=== PATIENT | female | born 1990 | race Caucasian/White ===

== ENCOUNTER 2019-09-20 08:04 | Inpatient (IN) ==
[2019-09-20] MEDS ORDERED: OXYTOCIN 30 UNITS/500 ML BAG IV PRN ×2 (08:58→17:32)
[2019-09-20] MEDS ORDERED: miSOPROStoL 200 MCG TAB PR ONE (09:06)
--- NOTE | 2019-09-20 09:10 | History & Physical Report ---
Date of Service September 20, 2019 Assessment & Plan (1) 40 weeks gestation of : Plan cytotec for cervical ripening. Then pitocin and arom when indicated. epidural on demand. fetus category one. Anticipate . Admission and Anticipated Discharge Date Admission Date: September 20, 2019 History of Present Illness Chief Complaint: induction Primary Care Provider: Kathya Cevallos Patient is a 29yowf with iup at 40 5/7 weeks who presents for induction for postdates. She notes some irregular contractions. No lof/vb. +fm. was complicated by borderline bps in the last week. No s/s pet. WAs to be induced on but was full. Had hernández bulb placed on Mon pm. Fell out early am but did not do much for cervical ripening. labs--A+/ab-/rirprnr/hepb-/hiv-/gc/ct-/gbs neg/failed 28 week gtt with nl 2 hr gtt/declined genetics/cf/sma Allergies Allergy/AdvReac Type Severity Reaction Status Date / Time rizatriptan Allergy Severe Swelling Verified 09/19/19 14:32 of Lip/Tongue/Throat Sulfa (Sulfonamide Allergy Severe HIVES Verified 09/19/19 14:32 Antibiotics) Home Medications Home Medications Medication Instructions Recorded Confirmed Type cholecalciferol (vitamin D3) 125 5,000 units PO DAILY 02/05/19 09/19/19 History mcg (5,000 unit) capsule prenat.vits,purnima,cem-rflm-phons 1 tab PO DAILY 02/05/19 09/19/19 History famotidine [Pepcid] 20 mg PO DAILY 09/10/19 09/19/19 History selenium 100 mcg PO DAILY 09/10/19 09/19/19 History zinc 50 mg PO DAILY 09/10/19 09/19/19 History lactobacillus comb no.10 1 cell PO DAILY 09/11/19 09/19/19 History [Probiotic] cetirizine [Zyrtec] 1 mg PO DAILY PRN 09/16/19 09/19/19 History Patient History Medical History Anxiety Back pain Cervical high risk HPV (human papillomavirus) test positive Hx of migraines Irritable bowel Irritable bowel syndrome (Inactive) Kidney stone Migraine (Resolved) Pinched nerve (Resolved) Rheumatoid arthritis involving both hands Rheumatoid arthritis involving both hips Surgical History [place] teeth removed Family History Father Diabetes Hypertension Heart disease Family/Other Depression Mother Kidney disease Endometriosis Ovarian cyst Fibroids Sister Thyroid cancer Ovarian cyst Fibroids Premature labor in third trimester Grandmother (Maternal) Osteoporosis Social History (Updated 02/05/19 @ 09:57 by Jo Ann Valencia) Preferred Language: Polish Communication Ability: Effective Textile Finisher Required: No Beliefs That Will Affect Care: None marital status: marital status details: Dank Waldrop (34) [phone] Current Living Situation: Spouse Current Living Situation Comment: Lives with spouse, 5 cats, changes litter current occupational status: employed current occupation: Case Management Director Feels Safe at Home: Yes Smoking Status: Never smoker Second Hand Exposure: No ; Hx Alcohol Use: No Hx Substance Use: No OB History g1--current [employer] History hx of +hpv in 2019 no other stds Review of Systems as per Subjective / HPI Physical Exam Constitutional: WD/WN, vitals as above Gastrointestinal (Abdomen): soft, gravid, nt efw 8-9 Psychiatric: A+Ox3, euthymic affect Genitourinary: cx--1+/50/-2 toco--rare contraction efm--130s wtih mod variability, accels to 160s, no decels cytotec #1 placed Results & Data ([facility]) Vital Signs (Past 12 Hours) Vital Signs Temp Pulse Resp BP 09/20/19 08:14 36.8 C 77 16 133/81 Code Status & VTE Plan VTE Prophylaxis Plan VTE Prophylaxis will be ordered: No Coding Level of Care Code None Diagnoses 40 weeks gestation of Z3A.40
[2019-09-20 09:26] LABS: Hematocrit (blood only) 34.5 % (37-47); Hemoglobin 11.4 g/dL (12.0-16.0); Mean Corpuscular Hemoglobin 28.7 pg (25-34); Mean Corpuscular Volume 86.9 fL (80-100); Mean Platelet Volume 12.4 fL (7.4-10.4); Platelet Count 153 K/uL (130-400); RDW Coefficient of Variation 13.2 % (11.5-14.5); RDW Standard Deviation 42.3 fL (36.4-46.3); Red Blood Count 3.97 M/uL (4.2-5.4); White Blood Count 10.25 K/uL (4.8-10.8)
[2019-09-20] MEDS ORDERED: miSOPROStoL 25 MCG TAB ONE ×2 (09:27→13:21)
[2019-09-20] MEDS ORDERED: miSOPROStoL 25 MCG TAB PV ONE (09:32)
--- NOTE | 2019-09-20 13:28 | Labor Progress Brief Note ---
Date of Service September 20, 2019 Subjective took a nap Assessment & Plan (1) 40 weeks gestation of : cytotec number 2 placed. Fetus category one. Admission and Anticipated Discharge Date Admission Date: September 20, 2019 Physical Exam Constitutional: WD/WN, vitals as above Psychiatric: A+Ox3, euthymic affect Genitourinary: cx--/50/-2 easier to reach and more ant toco--scout efm--150s wtih mod variability, accels to t170s, no decels Results & Data ([facility]) Vital Signs (Past 12 Hours) Vital Signs Temp Pulse Resp BP 09/20/19 11:37 69 127/73 09/20/19 10:07 36.8 C 20 09/20/19 08:14 36.8 C 77 16 133/81 Coding Level of Care Code None Diagnoses 40 weeks gestation of Z3A.40
--- NOTE | 2019-09-20 17:57 | Labor Progress Brief Note ---
Date of Service September 20, 2019 Subjective Noting some contractions, ranking 4-5. Assessment & Plan (1) 40 weeks gestation of : fetus category one. (2) Unfavorable cervix in term : STill quite unfavorable and jamie too frequently for cytotec. therefore, balloon trial again. Admission and Anticipated Discharge Date Admission Date: September 20, 2019 Physical Exam Constitutional: WD/WN, vitals as above Psychiatric: A+Ox3, euthymic affect Genitourinary: cx--unchanged, /-2, firm toco--q2-3min efm--140s wtih mod variability, accels to 160s, no decels hernández bulb placed under direct visualization, filled with 30cc. Results & Data ([facility]) Vital Signs (Past 12 Hours) Vital Signs Temp Pulse Resp BP 09/20/19 11:37 69 127/73 09/20/19 10:07 36.8 C 20 09/20/19 08:14 36.8 C 77 16 133/81 Coding Level of Care Code None Diagnoses 40 weeks gestation of Z3A.40 Unfavorable cervix in term O34.40 CPT Codes Hernández Bulb Placement for Cervical Ripening - [id number] ([id number])
[2019-09-20] MEDS: LACTATED RINGER'S 1,000 ML IV PRN ×2 (19:09→22:29)
[2019-09-20] MEDS ORDERED: BUPIVACAINE 0.25% 30 ML VIAL ONE (21:54)
[2019-09-20] MEDS ORDERED: ePHEDrine sulfate 50 MG/ML AMP ONE (21:54)
[2019-09-20] MEDS ORDERED: fentaNYL 2MCG/ML ROPIV 1.25MG/ML 100 ML BAG EPI ONE (21:55)
[2019-09-20] MEDS ORDERED: fentaNYL citrate 100 MCG/2 ML VIAL ONE (21:55)
--- NOTE | 2019-09-20 22:41 | Anesthesiology Consultation ---
Date of Service September 20, 2019 Assessment & Plan Chart Review Chart Review: Acceptable Risk for Labor Epidural Consults Requested none History Height/Weight Height: 5 ft 7 in Allergies Allergy/AdvReac Type Severity Reaction Status Date / Time rizatriptan Allergy Severe Swelling Verified 09/19/19 14:32 of Lip/Tongue/Throat Sulfa (Sulfonamide Allergy Severe HIVES Verified 09/19/19 14:32 Antibiotics) Medications Home Medications Medication Instructions Recorded Confirmed Last Taken cholecalciferol (vitamin D3) 125 5,000 units PO DAILY 02/05/19 09/20/19 09/19/19 08:00 mcg (5,000 unit) capsule prenat.vits,purnima,sua-pvna-obnbr 1 tab PO DAILY 02/05/19 09/20/19 09/19/19 08:00 famotidine [Pepcid] 20 mg PO DAILY 09/10/19 09/20/19 09/19/19 08:00 selenium 100 mcg PO DAILY 09/10/19 09/20/19 09/19/19 08:00 zinc 50 mg PO DAILY 09/10/19 09/20/19 09/19/19 08:00 lactobacillus comb no.10 1 cell PO DAILY 09/11/19 09/20/19 09/19/19 08:00 [Probiotic] cetirizine [Zyrtec] 1 mg PO DAILY PRN 09/16/19 09/20/19 09/19/19 08:00 Active Medications Generic Name Dose Route Start Last Admin Trade Name Freq PRN Reason Stop Dose Admin Lactated Ringer's 1,000 mls @ 125 mls/hr 09/20/19 08:58 09/20/19 22:29 Lr IV 09/22/19 08:57 999 mls/hr .Q8H PRN Administration L&D Protocol Protocol Oxytocin 30 units in 500 mls @ 6 mls/hr 09/20/19 17:32 09/20/19 21:00 Pitocin IV 09/22/19 17:31 0.36 units/hr .Q24H PRN 6 mls/hr Labor Induction/Augmentation Titration Protocol 0.36 UNITS/HR Past Medical History Medical History Anxiety Back pain Cervical high risk HPV (human papillomavirus) test positive Hx of migraines Irritable bowel Irritable bowel syndrome (Inactive) Kidney stone Migraine (Resolved) Pinched nerve (Resolved) Rheumatoid arthritis involving both hands Rheumatoid arthritis involving both hips Past Family History Family History Father Diabetes Hypertension Heart disease Family/Other Depression Mother Kidney disease Endometriosis Ovarian cyst Fibroids Sister Thyroid cancer Ovarian cyst Fibroids Premature labor in third trimester Grandmother (Maternal) Osteoporosis Past Surgical History Surgical History [place] teeth removed Social History Smoking Status: Never smoker Hx Alcohol Use: No Hx Substance Use: No substance use type: does not use Physical Exam Vital Signs Last Vital Signs Temp 36.8 C 09/20/19 22:13 Pulse 82 09/20/19 22:37 Resp 18 09/20/19 22:30 BP 119/71 09/20/19 22:34 Pulse Ox 98 09/20/19 22:37 Testing Laboratory Results 09/20/19 09:10
[2019-09-20] MEDS ORDERED: DiphenhydrAMINE HCL 50 MG/ML VIAL IV PRN (22:42)
[2019-09-20] MEDS ORDERED: NALOXONE HCL 1 MG in SODIUM CHLORIDE 0.9% 1000ML 1,000 ML IV PRN (22:42)
[2019-09-20] MEDS ORDERED: ePHEDrine sulfate 50 MG/ML AMP IV PRN (22:42)
[2019-09-20] MEDS ORDERED: fentaNYL 2MCG/ML ROPIV 1.25MG/ML 100 ML BAG EPI PRN (22:42)
[2019-09-20] MEDS ORDERED: NALOXONE HCL 0.4 MG/1 ML VIAL/CARP IV PRN (22:42)
--- NOTE | 2019-09-21 02:11 | Labor Progress Brief Note ---
Date of Service September 21, 2019 Subjective comfortable after epidural Assessment & Plan (1) 40 weeks gestation of : fetus category one. arom and see how that affects labor. iupc at next check if no change. Admission and Anticipated Discharge Date Admission Date: September 20, 2019 Physical Exam Constitutional: WD/WN, vitals as above Psychiatric: A+Ox3, euthymic affect Genitourinary: cx--4.5/80/-2 arom--? thin green mec toco--q2-3min, pit at 10 efm--120s with mod variability, accels to 150s, no decels Results & Data ([facility]) Vital Signs (Past 12 Hours) Vital Signs Temp Pulse Resp BP Pulse Ox 09/21/19 02:07 78 97 09/21/19 02:06 64 138/71 09/21/19 02:02 68 94 09/21/19 02:01 64 94 09/21/19 01:57 61 95 09/21/19 01:56 60 94 09/21/19 01:52 71 92 09/21/19 01:50 66 115/57 L 94 09/21/19 01:47 64 94 09/21/19 01:42 66 94 09/21/19 01:37 63 94 09/21/19 01:36 63 116/59 L 09/21/19 01:32 64 93 09/21/19 01:31 66 94 09/21/19 01:27 59 L 95 09/21/19 01:25 63 94 09/21/19 01:22 67 95 09/21/19 01:21 61 120/62 09/21/19 01:19 60 94 09/21/19 01:17 66 95 09/21/19 01:13 61 94 09/21/19 01:12 68 96 09/21/19 01:07 67 119/65 97 09/21/19 01:02 66 96 09/21/19 00:57 71 98 09/21/19 00:52 67 97 09/21/19 00:51 62 118/66 09/21/19 00:47 76 99 09/21/19 00:42 69 99 09/21/19 00:37 77 99 09/21/19 00:36 78 121/72 09/21/19 00:32 66 96 09/21/19 00:27 61 97 09/21/19 00:22 61 97 09/21/19 00:20 65 109/61 09/21/19 00:17 64 97 09/21/19 00:12 57 L 98 09/21/19 00:07 60 117/63 98 09/21/19 00:02 64 99 09/21/19 00:00 18 09/20/19 23:57 63 97 09/20/19 23:52 59 L 97 09/20/19 23:51 58 L 110/58 L 09/20/19 23:47 61 97 09/20/19 23:42 63 97 09/20/19 23:37 57 L 97 09/20/19 23:35 64 112/64 09/20/19 23:32 70 100 09/20/19 23:30 18 09/20/19 23:27 62 96 09/20/19 23:22 61 97 09/20/19 23:20 59 L 117/69 09/20/19 23:17 62 98 09/20/19 23:13 67 92 09/20/19 23:12 69 98 09/20/19 23:07 85 97 09/20/19 23:05 73 121/72 09/20/19 23:02 76 97 09/20/19 23:01 36.6 C 09/20/19 23:00 18 09/20/19 22:57 72 97 09/20/19 22:52 73 98 09/20/19 22:51 77 120/73 09/20/19 22:47 72 99 09/20/19 22:45 18 09/20/19 22:42 68 98 09/20/19 22:37 82 98 09/20/19 22:36 80 90 09/20/19 22:34 79 119/71 09/20/19 22:32 71 122/70 99 09/20/19 22:31 75 122/70 09/20/19 22:30 18 09/20/19 22:29 66 119/77 09/20/19 22:27 72 100 09/20/19 22:26 77 131/84 09/20/19 22:25 70 18 128/79 09/20/19 22:24 67 92 09/20/19 22:23 70 18 121/81 09/20/19 22:22 72 100 09/20/19 22:17 69 100 09/20/19 22:15 77 146/80 H 09/20/19 22:13 36.8 C 18 09/20/19 22:12 67 100 09/20/19 21:32 61 141/87 H 09/20/19 20:31 69 128/80 09/20/19 19:31 66 125/66 09/20/19 19:14 36.9 C 18 09/20/19 19:06 68 136/82 09/20/19 17:58 73 144/83 H 09/20/19 17:57 36.8 C 22 Coding Level of Care Code None Diagnoses 40 weeks gestation of Z3A.40
[2019-09-21] MEDS ORDERED: ONDANSETRON INJ 2 MG/ML 2 ML VIAL ONE (05:46)
[2019-09-21] MEDS: ONDANSETRON INJ 2 MG/ML 2 ML VIAL IV PRN ×2 (05:52→09:42)
[2019-09-21] MEDS: LACTATED RINGER'S 1,000 ML IV PRN ×2 (05:54→09:17)
[2019-09-21] MEDS ORDERED: CEFAZOLIN 2000MG 2,000 MG/15 ML SYR IV SCH (06:00)
--- NOTE | 2019-09-21 06:18 | Labor Progress Brief Note ---
Date of Service September 21, 2019 Subjective Has gotten uncomfortable and started to vomit. Assessment & Plan (1) 40 weeks gestation of : iupc placed to monitor contractions and pit. Fetus category one. Goal of pit for 200mvus or greater. Admission and Anticipated Discharge Date Admission Date: September 20, 2019 Physical Exam Constitutional: WD/WN, vitals as above Psychiatric: A+Ox3, euthymic affect Genitourinary: cx--/-1 efm--140s with mod variability, accels to 150s, occasional variable toco--a 2-3min, pit at 18 Results & Data ([facility]) Vital Signs (Past 12 Hours) Vital Signs Temp Pulse Resp BP Pulse Ox 09/21/19 06:12 66 98 09/21/19 06:09 70 89 L 09/21/19 06:07 67 100 09/21/19 06:05 81 129/78 09/21/19 06:02 63 98 09/21/19 06:00 36.8 C 18 09/21/19 05:57 75 98 09/21/19 05:52 77 97 09/21/19 05:51 75 130/74 09/21/19 05:47 77 100 09/21/19 05:46 81 93 09/21/19 05:42 78 100 09/21/19 05:37 73 97 09/21/19 05:36 82 141/76 H 92 09/21/19 05:32 63 100 09/21/19 05:30 67 92 09/21/19 05:27 80 98 09/21/19 05:22 61 144/80 H 100 09/21/19 05:20 76 92 09/21/19 05:17 73 100 09/21/19 05:12 61 99 09/21/19 05:08 67 93 09/21/19 05:07 68 140/79 98 09/21/19 05:02 79 100 09/21/19 04:57 71 18 100 09/21/19 04:52 75 98 09/21/19 04:50 64 121/66 09/21/19 04:47 76 100 09/21/19 04:42 61 96 09/21/19 04:37 68 96 09/21/19 04:35 71 126/70 09/21/19 04:32 64 99 09/21/19 04:27 73 100 09/21/19 04:22 64 99 09/21/19 04:21 65 124/72 09/21/19 04:17 63 97 09/21/19 04:12 66 98 09/21/19 04:07 61 100 09/21/19 04:06 60 126/72 09/21/19 04:02 64 96 09/21/19 04:00 36.9 C 18 09/21/19 03:57 60 97 09/21/19 03:52 60 97 09/21/19 03:51 65 121/73 09/21/19 03:47 68 97 09/21/19 03:42 67 97 09/21/19 03:37 70 96 09/21/19 03:36 67 120/69 09/21/19 03:32 70 97 09/21/19 03:27 67 96 09/21/19 03:22 63 98 09/21/19 03:20 77 117/58 L 09/21/19 03:17 74 96 09/21/19 03:12 70 97 09/21/19 03:07 67 97 09/21/19 03:06 62 122/66 09/21/19 03:02 76 96 09/21/19 02:57 73 96 09/21/19 02:52 68 96 09/21/19 02:50 63 116/64 09/21/19 02:47 64 96 09/21/19 02:42 74 97 09/21/19 02:37 63 97 09/21/19 02:36 62 122/65 09/21/19 02:32 68 97 09/21/19 02:27 66 97 09/21/19 02:22 70 98 09/21/19 02:21 67 119/67 09/21/19 02:17 71 97 09/21/19 02:12 74 97 09/21/19 02:07 78 97 09/21/19 02:06 64 138/71 09/21/19 02:05 36.8 C 09/21/19 02:02 68 94 09/21/19 02:01 64 94 09/21/19 01:57 61 95 09/21/19 01:56 60 94 09/21/19 01:52 71 92 09/21/19 01:50 66 115/57 L 94 09/21/19 01:47 64 94 09/21/19 01:42 66 94 09/21/19 01:37 63 94 09/21/19 01:36 63 116/59 L 09/21/19 01:32 64 93 09/21/19 01:31 66 94 09/21/19 01:27 59 L 95 09/21/19 01:25 63 94 09/21/19 01:22 67 95 09/21/19 01:21 61 120/62 09/21/19 01:19 60 94 09/21/19 01:17 66 95 09/21/19 01:13 61 94 09/21/19 01:12 68 96 09/21/19 01:07 67 119/65 97 09/21/19 01:02 66 96 09/21/19 00:57 71 98 09/21/19 00:52 67 97 09/21/19 00:51 62 118/66 09/21/19 00:47 76 99 09/21/19 00:42 69 99 09/21/19 00:37 77 99 09/21/19 00:36 78 121/72 09/21/19 00:32 66 96 09/21/19 00:27 61 97 09/21/19 00:22 61 97 09/21/19 00:20 65 109/61 09/21/19 00:17 64 97 09/21/19 00:12 57 L 98 09/21/19 00:07 60 117/63 98 09/21/19 00:02 64 99 09/21/19 00:00 18 09/20/19 23:57 63 97 09/20/19 23:52 59 L 97 09/20/19 23:51 58 L 110/58 L 09/20/19 23:47 61 97 09/20/19 23:42 63 97 09/20/19 23:37 57 L 97 09/20/19 23:35 64 112/64 09/20/19 23:32 70 100 09/20/19 23:30 18 09/20/19 23:27 62 96 09/20/19 23:22 61 97 09/20/19 23:20 59 L 117/69 09/20/19 23:17 62 98 09/20/19 23:13 67 92 09/20/19 23:12 69 98 09/20/19 23:07 85 97 09/20/19 23:05 73 121/72 09/20/19 23:02 76 97 09/20/19 23:01 36.6 C 09/20/19 23:00 18 09/20/19 22:57 72 97 09/20/19 22:52 73 98 09/20/19 22:51 77 120/73 09/20/19 22:47 72 99 09/20/19 22:45 18 09/20/19 22:42 68 98 09/20/19 22:37 82 98 09/20/19 22:36 80 90 09/20/19 22:34 79 119/71 09/20/19 22:32 71 122/70 99 09/20/19 22:31 75 122/70 09/20/19 22:30 18 09/20/19 22:29 66 119/77 09/20/19 22:27 72 100 09/20/19 22:26 77 131/84 09/20/19 22:25 70 18 128/79 09/20/19 22:24 67 92 09/20/19 22:23 70 18 121/81 09/20/19 22:22 72 100 09/20/19 22:17 69 100 09/20/19 22:15 77 146/80 H 09/20/19 22:13 36.8 C 18 09/20/19 22:12 67 100 09/20/19 21:32 61 141/87 H 09/20/19 20:31 69 128/80 09/20/19 19:31 66 125/66 09/20/19 19:14 36.9 C 18 09/20/19 19:06 68 136/82 Coding Level of Care Code None Diagnoses 40 weeks gestation of Z3A.40
[2019-09-21] MEDS ORDERED: Nursing to Pharmacy Communication SCH (06:30)
--- NOTE | 2019-09-21 07:16 | Labor Progress Brief Note ---
Date of Service September 21, 2019 Subjective vomiting passed Assessment & Plan (1) 40 weeks gestation of : Appears to be adequate, will continue to monitor closely. Fetus category one. Admission and Anticipated Discharge Date Admission Date: September 20, 2019 Physical Exam Constitutional: WD/WN, vitals as above Psychiatric: A+Ox3, euthymic affect Genitourinary: toco--q2-3, pit at 18 MVus just at 200 currently efm--140s with mod variability, accels to 150s, no decels Results & Data ([facility]) Vital Signs (Past 12 Hours) Vital Signs Temp Pulse Resp BP Pulse Ox 09/21/19 07:12 88 100 09/21/19 07:11 36.7 C 18 09/21/19 07:07 88 100 09/21/19 07:06 75 134/69 09/21/19 07:02 88 100 09/21/19 06:57 77 100 09/21/19 06:52 108 H 150/94 H 99 09/21/19 06:48 85 91 09/21/19 06:47 76 98 09/21/19 06:42 85 99 09/21/19 06:37 73 100 09/21/19 06:35 64 131/72 09/21/19 06:32 80 97 09/21/19 06:27 78 96 09/21/19 06:23 80 91 09/21/19 06:22 74 96 09/21/19 06:20 74 121/67 09/21/19 06:17 71 98 09/21/19 06:12 66 98 09/21/19 06:09 70 89 L 09/21/19 06:07 67 100 09/21/19 06:05 81 129/78 09/21/19 06:02 63 98 09/21/19 06:00 36.8 C 18 09/21/19 05:57 75 98 09/21/19 05:52 77 97 09/21/19 05:51 75 130/74 09/21/19 05:47 77 100 09/21/19 05:46 81 93 09/21/19 05:42 78 100 09/21/19 05:37 73 97 09/21/19 05:36 82 141/76 H 92 09/21/19 05:32 63 100 09/21/19 05:30 67 92 09/21/19 05:27 80 98 09/21/19 05:22 61 144/80 H 100 09/21/19 05:20 76 92 09/21/19 05:17 73 100 09/21/19 05:12 61 99 09/21/19 05:08 67 93 09/21/19 05:07 68 140/79 98 09/21/19 05:02 79 100 09/21/19 04:57 71 18 100 09/21/19 04:52 75 98 09/21/19 04:50 64 121/66 09/21/19 04:47 76 100 09/21/19 04:42 61 96 09/21/19 04:37 68 96 09/21/19 04:35 71 126/70 09/21/19 04:32 64 99 09/21/19 04:27 73 100 09/21/19 04:22 64 99 09/21/19 04:21 65 124/72 09/21/19 04:17 63 97 09/21/19 04:12 66 98 09/21/19 04:07 61 100 09/21/19 04:06 60 126/72 09/21/19 04:02 64 96 09/21/19 04:00 36.9 C 18 09/21/19 03:57 60 97 09/21/19 03:52 60 97 09/21/19 03:51 65 121/73 09/21/19 03:47 68 97 09/21/19 03:42 67 97 09/21/19 03:37 70 96 09/21/19 03:36 67 120/69 09/21/19 03:32 70 97 09/21/19 03:27 67 96 09/21/19 03:22 63 98 09/21/19 03:20 77 117/58 L 09/21/19 03:17 74 96 09/21/19 03:12 70 97 09/21/19 03:07 67 97 09/21/19 03:06 62 122/66 09/21/19 03:02 76 96 09/21/19 02:57 73 96 09/21/19 02:52 68 96 09/21/19 02:50 63 116/64 09/21/19 02:47 64 96 09/21/19 02:42 74 97 09/21/19 02:37 63 97 09/21/19 02:36 62 122/65 09/21/19 02:32 68 97 09/21/19 02:27 66 97 09/21/19 02:22 70 98 09/21/19 02:21 67 119/67 09/21/19 02:17 71 97 09/21/19 02:12 74 97 09/21/19 02:07 78 97 09/21/19 02:06 64 138/71 09/21/19 02:05 36.8 C 09/21/19 02:02 68 94 09/21/19 02:01 64 94 09/21/19 01:57 61 95 09/21/19 01:56 60 94 09/21/19 01:52 71 92 09/21/19 01:50 66 115/57 L 94 09/21/19 01:47 64 94 09/21/19 01:42 66 94 09/21/19 01:37 63 94 09/21/19 01:36 63 116/59 L 09/21/19 01:32 64 93 09/21/19 01:31 66 94 09/21/19 01:27 59 L 95 09/21/19 01:25 63 94 09/21/19 01:22 67 95 09/21/19 01:21 61 120/62 09/21/19 01:19 60 94 09/21/19 01:17 66 95 09/21/19 01:13 61 94 09/21/19 01:12 68 96 09/21/19 01:07 67 119/65 97 09/21/19 01:02 66 96 09/21/19 00:57 71 98 09/21/19 00:52 67 97 09/21/19 00:51 62 118/66 09/21/19 00:47 76 99 09/21/19 00:42 69 99 09/21/19 00:37 77 99 09/21/19 00:36 78 121/72 09/21/19 00:32 66 96 09/21/19 00:27 61 97 09/21/19 00:22 61 97 09/21/19 00:20 65 109/61 09/21/19 00:17 64 97 09/21/19 00:12 57 L 98 09/21/19 00:07 60 117/63 98 09/21/19 00:02 64 99 09/21/19 00:00 18 09/20/19 23:57 63 97 09/20/19 23:52 59 L 97 09/20/19 23:51 58 L 110/58 L 09/20/19 23:47 61 97 09/20/19 23:42 63 97 09/20/19 23:37 57 L 97 09/20/19 23:35 64 112/64 09/20/19 23:32 70 100 09/20/19 23:30 18 09/20/19 23:27 62 96 09/20/19 23:22 61 97 09/20/19 23:20 59 L 117/69 09/20/19 23:17 62 98 09/20/19 23:13 67 92 09/20/19 23:12 69 98 09/20/19 23:07 85 97 09/20/19 23:05 73 121/72 09/20/19 23:02 76 97 09/20/19 23:01 36.6 C 09/20/19 23:00 18 09/20/19 22:57 72 97 09/20/19 22:52 73 98 09/20/19 22:51 77 120/73 09/20/19 22:47 72 99 09/20/19 22:45 18 09/20/19 22:42 68 98 09/20/19 22:37 82 98 09/20/19 22:36 80 90 09/20/19 22:34 79 119/71 09/20/19 22:32 71 122/70 99 09/20/19 22:31 75 122/70 09/20/19 22:30 18 09/20/19 22:29 66 119/77 09/20/19 22:27 72 100 09/20/19 22:26 77 131/84 09/20/19 22:25 70 18 128/79 09/20/19 22:24 67 92 09/20/19 22:23 70 18 121/81 09/20/19 22:22 72 100 09/20/19 22:17 69 100 09/20/19 22:15 77 146/80 H 09/20/19 22:13 36.8 C 18 09/20/19 22:12 67 100 09/20/19 21:32 61 141/87 H 09/20/19 20:31 69 128/80 09/20/19 19:31 66 125/66 Coding Level of Care Code None Diagnoses 40 weeks gestation of Z3A.40
[2019-09-21] MEDS ORDERED: BUPIVACAINE 0.25% 30 ML VIAL ONE (07:42)
[2019-09-21] MEDS ORDERED: ePHEDrine sulfate 50 MG/ML AMP IV PRN ×2 (08:06→11:17)
[2019-09-21] MEDS ORDERED: ONDANSETRON INJ 2 MG/ML 2 ML VIAL IV PRN ×3 (08:06→12:37)
[2019-09-21] MEDS ORDERED: DiphenhydrAMINE HCL 50 MG/ML VIAL IV PRN ×3 (08:06→12:37)
[2019-09-21] MEDS ORDERED: NALOXONE HCL 1 MG in SODIUM CHLORIDE 0.9% 1000ML 1,000 ML IV PRN ×2 (08:06→11:17)
[2019-09-21] MEDS ORDERED: NALOXONE HCL 0.4 MG/1 ML VIAL/CARP IV PRN ×2 (08:06→11:17)
[2019-09-21] MEDS ORDERED: fentaNYL 2MCG/ML ROPIV 1.25MG/ML 100 ML BAG EPI PRN (08:06)
--- NOTE | 2019-09-21 08:45 | Labor Progress Brief Note ---
Date of Service September 21, 2019 Received sign over from Dr. Garcia at 8:30 in the morning patient has been induced since yesterday early in the morning initially with Cytotec and then subsequently with a cervical [place] and also Pitocin and artificial rupture membranes was also performed early in the morning and IUPC was placed. There is documented adequate contractions the patient is on 20 milliunits of Pitocin heart rate is category 1 The patient is making extremely slow progress at this stage last check was at 8 in the morning I will check the cervix at 10 in the morning I discussed with the patient the slow progress and at this stage adequate contractions are documented by IUPC I discussed if there was no change at 10 in the morning we would start discussion the possibility of section, the patient seemed amenable to this. I discussed if there was a significant change that this would be optimal and we could proceed with induction. We discussed the potential reasons why progress might be this slow at this time including lack of adequate contractions however because of the IUPC I think this can be dispelled I discussed the other possibilities including pelvis size and size of the baby So in summary there is some very slow progress at this stage despite adequate contractions we will recheck 2 hours from the last check Assessment & Plan Admission and Anticipated Discharge Date Admission Date: September 20, 2019 Results & Data ([facility]) Vital Signs (Past 12 Hours) Vital Signs Temp Pulse Resp BP Pulse Ox 09/21/19 08:42 88 99 09/21/19 08:37 83 99 09/21/19 08:32 83 100 09/21/19 08:29 83 132/75 09/21/19 08:27 89 100 09/21/19 08:24 89 144/79 H 09/21/19 08:22 98.4 F 87 96 09/21/19 08:19 86 131/70 09/21/19 08:17 92 H 98 09/21/19 08:15 82 145/74 H 09/21/19 08:12 80 100 09/21/19 08:11 90 93 09/21/19 08:09 83 119/60 09/21/19 08:07 80 100 09/21/19 08:06 82 133/69 09/21/19 08:03 91 H 93 09/21/19 08:02 85 96 09/21/19 07:58 87 127/78 09/21/19 07:57 97 H 98 07/04/20 07:52 99 H 98 09/21/19 07:47 84 91 09/21/19 07:42 79 100 09/21/19 07:37 73 100 09/21/19 07:36 68 125/69 09/21/19 07:32 84 97 09/21/19 07:27 77 98 09/21/19 07:22 73 100 09/21/19 07:21 72 137/66 09/21/19 07:17 77 100 09/21/19 07:15 96 H 92 09/21/19 07:12 88 100 09/21/19 07:11 98.1 F 18 09/21/19 07:07 88 100 09/21/19 07:06 75 134/69 09/21/19 07:02 88 100 09/21/19 06:57 77 100 09/21/19 06:52 108 H 150/94 H 99 09/21/19 06:48 85 91 09/21/19 06:47 76 98 09/21/19 06:42 85 99 09/21/19 06:37 73 100 09/21/19 06:35 64 131/72 09/21/19 06:32 80 97 09/21/19 06:27 78 96 09/21/19 06:23 80 91 09/21/19 06:22 74 96 09/21/19 06:20 74 121/67 09/21/19 06:17 71 98 09/21/19 06:12 66 98 09/21/19 06:09 70 89 L 09/21/19 06:07 67 100 09/21/19 06:05 81 129/78 09/21/19 06:02 63 98 09/21/19 06:00 98.2 F 18 09/21/19 05:57 75 98 09/21/19 05:52 77 97 09/21/19 05:51 75 130/74 09/21/19 05:47 77 100 09/21/19 05:46 81 93 09/21/19 05:42 78 100 09/21/19 05:37 73 97 09/21/19 05:36 82 141/76 H 92 09/21/19 05:32 63 100 09/21/19 05:30 67 92 09/21/19 05:27 80 98 09/21/19 05:22 61 144/80 H 100 09/21/19 05:20 76 92 09/21/19 05:17 73 100 09/21/19 05:12 61 99 09/21/19 05:08 67 93 09/21/19 05:07 68 140/79 98 09/21/19 05:02 79 100 09/21/19 04:57 71 18 100 09/21/19 04:52 75 98 09/21/19 04:50 64 121/66 09/21/19 04:47 76 100 09/21/19 04:42 61 96 09/21/19 04:37 68 96 09/21/19 04:35 71 126/70 09/21/19 04:32 64 99 09/21/19 04:27 73 100 09/21/19 04:22 64 99 09/21/19 04:21 65 124/72 09/21/19 04:17 63 97 09/21/19 04:12 66 98 09/21/19 04:07 61 100 09/21/19 04:06 60 126/72 09/21/19 04:02 64 96 09/21/19 04:00 98.4 F 18 09/21/19 03:57 60 97 09/21/19 03:52 60 97 09/21/19 03:51 65 121/73 09/21/19 03:47 68 97 09/21/19 03:42 67 97 09/21/19 03:37 70 96 09/21/19 03:36 67 120/69 09/21/19 03:32 70 97 09/21/19 03:27 67 96 09/21/19 03:22 63 98 09/21/19 03:20 77 117/58 L 09/21/19 03:17 74 96 09/21/19 03:12 70 97 09/21/19 03:07 67 97 09/21/19 03:06 62 122/66 09/21/19 03:02 76 96 09/21/19 02:57 73 96 09/21/19 02:52 68 96 09/21/19 02:50 63 116/64 09/21/19 02:47 64 96 09/21/19 02:42 74 97 09/21/19 02:37 63 97 09/21/19 02:36 62 122/65 09/21/19 02:32 68 97 09/21/19 02:27 66 97 09/21/19 02:22 70 98 09/21/19 02:21 67 119/67 09/21/19 02:17 71 97 09/21/19 02:12 74 97 09/21/19 02:07 78 97 09/21/19 02:06 64 138/71 09/21/19 02:05 98.2 F 09/21/19 02:02 68 94 09/21/19 02:01 64 94 09/21/19 01:57 61 95 09/21/19 01:56 60 94 09/21/19 01:52 71 92 09/21/19 01:50 66 115/57 L 94 09/21/19 01:47 64 94 09/21/19 01:42 66 94 09/21/19 01:37 63 94 09/21/19 01:36 63 116/59 L 09/21/19 01:32 64 93 09/21/19 01:31 66 94 09/21/19 01:27 59 L 95 09/21/19 01:25 63 94 09/21/19 01:22 67 95 09/21/19 01:21 61 120/62 09/21/19 01:19 60 94 09/21/19 01:17 66 95 09/21/19 01:13 61 94 09/21/19 01:12 68 96 09/21/19 01:07 67 119/65 97 09/21/19 01:02 66 96 09/21/19 00:57 71 98 09/21/19 00:52 67 97 09/21/19 00:51 62 118/66 09/21/19 00:47 76 99 09/21/19 00:42 69 99 09/21/19 00:37 77 99 09/21/19 00:36 78 121/72 09/21/19 00:32 66 96 09/21/19 00:27 61 97 09/21/19 00:22 61 97 09/21/19 00:20 65 109/61 09/21/19 00:17 64 97 09/21/19 00:12 57 L 98 09/21/19 00:07 60 117/63 98 09/21/19 00:02 64 99 09/21/19 00:00 18 09/20/19 23:57 63 97 09/20/19 23:52 59 L 97 09/20/19 23:51 58 L 110/58 L 09/20/19 23:47 61 97 09/20/19 23:42 63 97 09/20/19 23:37 57 L 97 09/20/19 23:35 64 112/64 09/20/19 23:32 70 100 09/20/19 23:30 18 09/20/19 23:27 62 96 09/20/19 23:22 61 97 09/20/19 23:20 59 L 117/69 09/20/19 23:17 62 98 09/20/19 23:13 67 92 09/20/19 23:12 69 98 09/20/19 23:07 85 97 09/20/19 23:05 73 121/72 09/20/19 23:02 76 97 09/20/19 23:01 97.9 F 09/20/19 23:00 18 09/20/19 22:57 72 97 09/20/19 22:52 73 98 09/20/19 22:51 77 120/73 09/20/19 22:47 72 99 09/20/19 22:45 18 09/20/19 22:42 68 98 09/20/19 22:37 82 98 09/20/19 22:36 80 90 09/20/19 22:34 79 119/71 09/20/19 22:32 71 122/70 99 09/20/19 22:31 75 122/70 09/20/19 22:30 18 09/20/19 22:29 66 119/77 09/20/19 22:27 72 100 09/20/19 22:26 77 131/84 09/20/19 22:25 70 18 128/79 09/20/19 22:24 67 92 09/20/19 22:23 70 18 121/81 09/20/19 22:22 72 100 09/20/19 22:17 69 100 09/20/19 22:15 77 146/80 H 09/20/19 22:13 98.2 F 18 09/20/19 22:12 67 100 09/20/19 21:32 61 141/87 H Coding Level of Care Code None
--- NOTE | 2019-09-21 09:59 | Labor Progress Brief Note ---
Date of Service September 21, 2019 Prolonged labor patient is extremely uncomfortable now she had her epidural adjusted and this improved things temporarily but now she is crying in pain her cervix is 6 cm with a thickened cervix -1 with more than adequate contractions on Pitocin At this stage this is obstructed labor the patient is extremely uncomfortable I have recommended section the patient agrees discussed risks section. The patient was counseled to the nature of the procedure including alternatives such as labor. Risks were discussed including bleeding infection injury to bowel bladder ureter vessels and even baby. Deep Vein thrombosis, pulmonary embolus discussed. Breakdown of incision reviewed. Deep vein thrombosis pulmonary embolus hernia and failure of the incision to heal were discussed Patient verbalized understanding of this and was given ample time to ask questions Increased infection risk with prolonged labor discussed Assessment & Plan Admission and Anticipated Discharge Date Admission Date: September 20, 2019 Results & Data ([facility] [place]) Vital Signs (Past 12 Hours) Vital Signs Temp Pulse Resp BP Pulse Ox 09/21/19 09:52 82 99 09/21/19 09:48 92 H 92 09/21/19 09:47 81 98 09/21/19 09:46 86 137/73 09/21/19 09:43 95 H 92 09/21/19 09:42 92 H 97 09/21/19 09:37 91 H 98 09/21/19 09:32 86 99 09/21/19 09:31 80 129/74 09/21/19 09:28 81 140/86 09/21/19 09:27 89 98 09/21/19 09:22 80 100 09/21/19 09:17 84 99 09/21/19 09:15 75 131/72 09/21/19 09:12 87 98 09/21/19 09:09 86 94 09/21/19 09:07 80 98 09/21/19 09:02 80 98 09/21/19 09:00 83 18 132/71 09/21/19 08:57 83 100 09/21/19 08:52 82 99 09/21/19 08:47 88 100 09/21/19 08:46 85 124/63 09/21/19 08:42 88 99 09/21/19 08:37 83 99 09/21/19 08:32 83 100 09/21/19 08:30 18 09/21/19 08:29 83 132/75 09/21/19 08:27 89 100 09/21/19 08:24 89 144/79 H 09/21/19 08:22 98.4 F 87 96 09/21/19 08:19 86 131/70 09/21/19 08:17 92 H 98 09/21/19 08:15 82 145/74 H 09/21/19 08:12 80 100 09/21/19 08:11 90 93 09/21/19 08:09 83 119/60 09/21/19 08:07 80 100 09/21/19 08:06 82 133/69 09/21/19 08:03 91 H 93 09/21/19 08:02 85 96 09/21/19 07:58 87 127/78 09/21/19 07:57 97 H 98 09/21/19 07:52 99 H 98 09/21/19 07:47 84 18 91 09/21/19 07:42 79 100 09/21/19 07:37 73 100 09/21/19 07:36 68 125/69 09/21/19 07:32 84 97 09/21/19 07:30 18 09/21/19 07:27 77 98 09/21/19 07:22 73 100 09/21/19 07:21 72 137/66 09/21/19 07:17 77 100 09/21/19 07:15 96 H 92 09/21/19 07:12 88 100 09/21/19 07:11 98.1 F 18 09/21/19 07:07 88 100 09/21/19 07:06 75 134/69 09/21/19 07:02 88 100 09/21/19 07:00 18 09/21/19 06:57 77 100 09/21/19 06:52 108 H 150/94 H 99 09/21/19 06:48 85 91 09/21/19 06:47 76 98 09/21/19 06:42 85 99 09/21/19 06:37 73 100 09/21/19 06:35 64 131/72 09/21/19 06:32 80 97 09/21/19 06:27 78 96 09/21/19 06:23 80 91 09/21/19 06:22 74 96 09/21/19 06:20 74 121/67 09/21/19 06:17 71 98 09/21/19 06:12 66 98 09/21/19 06:09 70 89 L 09/21/19 06:07 67 100 09/21/19 06:05 81 129/78 09/21/19 06:02 63 98 09/21/19 06:00 98.2 F 18 09/21/19 05:57 75 98 09/21/19 05:52 77 97 09/21/19 05:51 75 130/74 09/21/19 05:47 77 100 09/21/19 05:46 81 93 09/21/19 05:42 78 100 09/21/19 05:37 73 97 09/21/19 05:36 82 141/76 H 92 09/21/19 05:32 63 100 09/21/19 05:30 67 92 09/21/19 05:27 80 98 09/21/19 05:22 61 144/80 H 100 09/21/19 05:20 76 92 09/21/19 05:17 73 100 09/21/19 05:12 61 99 09/21/19 05:08 67 93 09/21/19 05:07 68 140/79 98 09/21/19 05:02 79 100 09/21/19 04:57 71 18 100 09/21/19 04:52 75 98 09/21/19 04:50 64 121/66 09/21/19 04:47 76 100 09/21/19 04:42 61 96 09/21/19 04:37 68 96 09/21/19 04:35 71 126/70 09/21/19 04:32 64 99 09/21/19 04:27 73 100 09/21/19 04:22 64 99 09/21/19 04:21 65 124/72 09/21/19 04:17 63 97 09/21/19 04:12 66 98 09/21/19 04:07 61 100 09/21/19 04:06 60 126/72 09/21/19 04:02 64 96 09/21/19 04:00 98.4 F 18 09/21/19 03:57 60 97 09/21/19 03:52 60 97 09/21/19 03:51 65 121/73 09/21/19 03:47 68 97 09/21/19 03:42 67 97 09/21/19 03:37 70 96 09/21/19 03:36 67 120/69 09/21/19 03:32 70 97 09/21/19 03:27 67 96 09/21/19 03:22 63 98 09/21/19 03:20 77 117/58 L 09/21/19 03:17 74 96 09/21/19 03:12 70 97 09/21/19 03:07 67 97 09/21/19 03:06 62 122/66 09/21/19 03:02 76 96 09/21/19 02:57 73 96 09/21/19 02:52 68 96 09/21/19 02:50 63 116/64 09/21/19 02:47 64 96 09/21/19 02:42 74 97 09/21/19 02:37 63 97 09/21/19 02:36 62 122/65 09/21/19 02:32 68 97 09/21/19 02:27 66 97 09/21/19 02:22 70 98 09/21/19 02:21 67 119/67 09/21/19 02:17 71 97 09/21/19 02:12 74 97 09/21/19 02:07 78 97 09/21/19 02:06 64 138/71 09/21/19 02:05 98.2 F 09/21/19 02:02 68 94 09/21/19 02:01 64 94 09/21/19 01:57 61 95 09/21/19 01:56 60 94 09/21/19 01:52 71 92 09/21/19 01:50 66 115/57 L 94 09/21/19 01:47 64 94 09/21/19 01:42 66 94 09/21/19 01:37 63 94 09/21/19 01:36 63 116/59 L 09/21/19 01:32 64 93 09/21/19 01:31 66 94 09/21/19 01:27 59 L 95 09/21/19 01:25 63 94 09/21/19 01:22 67 95 09/21/19 01:21 61 120/62 09/21/19 01:19 60 94 09/21/19 01:17 66 95 09/21/19 01:13 61 94 09/21/19 01:12 68 96 09/21/19 01:07 67 119/65 97 09/21/19 01:02 66 96 09/21/19 00:57 71 98 09/21/19 00:52 67 97 09/21/19 00:51 62 118/66 09/21/19 00:47 76 99 09/21/19 00:42 69 99 09/21/19 00:37 77 99 09/21/19 00:36 78 121/72 09/21/19 00:32 66 96 09/21/19 00:27 61 97 09/21/19 00:22 61 97 09/21/19 00:20 65 109/61 09/21/19 00:17 64 97 09/21/19 00:12 57 L 98 09/21/19 00:07 60 117/63 98 09/21/19 00:02 64 99 09/21/19 00:00 18 09/20/19 23:57 63 97 09/20/19 23:52 59 L 97 09/20/19 23:51 58 L 110/58 L 09/20/19 23:47 61 97 09/20/19 23:42 63 97 09/20/19 23:37 57 L 97 09/20/19 23:35 64 112/64 09/20/19 23:32 70 100 09/20/19 23:30 18 09/20/19 23:27 62 96 09/20/19 23:22 61 97 09/20/19 23:20 59 L 117/69 09/20/19 23:17 62 98 09/20/19 23:13 67 92 09/20/19 23:12 69 98 09/20/19 23:07 85 97 09/20/19 23:05 73 121/72 09/20/19 23:02 76 97 09/20/19 23:01 97.9 F 09/20/19 23:00 18 09/20/19 22:57 72 97 09/20/19 22:52 73 98 09/20/19 22:51 77 120/73 09/20/19 22:47 72 99 09/20/19 22:45 18 09/20/19 22:42 68 98 09/20/19 22:37 82 98 09/20/19 22:36 80 90 09/20/19 22:34 79 119/71 09/20/19 22:32 71 122/70 99 09/20/19 22:31 75 122/70 09/20/19 22:30 18 09/20/19 22:29 66 119/77 09/20/19 22:27 72 100 09/20/19 22:26 77 131/84 09/20/19 22:25 70 18 128/79 09/20/19 22:24 67 92 09/20/19 22:23 70 18 121/81 09/20/19 22:22 72 100 09/20/19 22:17 69 100 09/20/19 22:15 77 146/80 H 09/20/19 22:13 98.2 F 18 09/20/19 22:12 67 100 Coding Level of Care Code None
[2019-09-21] MEDS ORDERED: CITRIC ACID/SODIUM CITRATE 15 ML UDC ONE (10:02)
[2019-09-21] MEDS ORDERED: LIDOCAINE/EPINEPHRINE 2% 1:200,000 20 ML SDV ONE (10:03)
--- NOTE | 2019-09-21 10:06 | Labor Progress Brief Note ---
Date of Service September 21, 2019 Pain modestly improving at this stage now that the Pitocin is been stopped. Reviewed the consent with the patient noted this stage the cervix is fairly thick as well 6 cm at most and -1 station Assessment & Plan Admission and Anticipated Discharge Date Admission Date: September 20, 2019 Results & Data ([facility]) Vital Signs (Past 12 Hours) Vital Signs Temp Pulse Resp BP Pulse Ox 09/21/19 10:02 80 163/71 H 98 09/21/19 09:57 92 H 100 09/21/19 09:52 82 99 09/21/19 09:48 92 H 92 09/21/19 09:47 81 98 09/21/19 09:46 86 137/73 09/21/19 09:43 95 H 92 09/21/19 09:42 92 H 97 09/21/19 09:37 91 H 98 09/21/19 09:32 86 99 09/21/19 09:31 80 129/74 09/21/19 09:28 81 140/86 09/21/19 09:27 89 98 09/21/19 09:22 80 100 09/21/19 09:17 84 99 09/21/19 09:15 75 131/72 09/21/19 09:12 87 98 09/21/19 09:09 86 94 09/21/19 09:07 80 98 09/21/19 09:02 80 98 09/21/19 09:00 83 18 132/71 09/21/19 08:57 83 100 09/21/19 08:52 82 99 09/21/19 08:47 88 100 09/21/19 08:46 85 124/63 09/21/19 08:42 88 99 09/21/19 08:37 83 99 09/21/19 08:32 83 100 09/21/19 08:30 18 09/21/19 08:29 83 132/75 09/21/19 08:27 89 100 09/21/19 08:24 89 144/79 H 09/21/19 08:22 98.4 F 87 96 09/21/19 08:19 86 131/70 09/21/19 08:17 92 H 98 09/21/19 08:15 82 145/74 H 09/21/19 08:12 80 100 09/21/19 08:11 90 93 09/21/19 08:09 83 119/60 09/21/19 08:07 80 100 09/21/19 08:06 82 133/69 09/21/19 08:03 91 H 93 09/21/19 08:02 85 96 09/21/19 07:58 87 127/78 09/21/19 07:57 97 H 98 09/21/19 07:52 99 H 98 09/21/19 07:47 84 18 91 09/21/19 07:42 79 100 09/21/19 07:37 73 100 09/21/19 07:36 68 125/69 09/21/19 07:32 84 97 09/21/19 07:30 18 09/21/19 07:27 77 98 09/21/19 07:22 73 100 09/21/19 07:21 72 137/66 09/21/19 07:17 77 100 09/21/19 07:15 96 H 92 09/21/19 07:12 88 100 09/21/19 07:11 98.1 F 18 09/21/19 07:07 88 100 09/21/19 07:06 75 134/69 09/21/19 07:02 88 100 09/21/19 07:00 18 09/21/19 06:57 77 100 09/21/19 06:52 108 H 150/94 H 99 09/21/19 06:48 85 91 09/21/19 06:47 76 98 09/21/19 06:42 85 99 09/21/19 06:37 73 100 09/21/19 06:35 64 131/72 09/21/19 06:32 80 97 09/21/19 06:27 78 96 09/21/19 06:23 80 91 09/21/19 06:22 74 96 09/21/19 06:20 74 121/67 09/21/19 06:17 71 98 09/21/19 06:12 66 98 09/21/19 06:09 70 89 L 09/21/19 06:07 67 100 09/21/19 06:05 81 129/78 09/21/19 06:02 63 98 09/21/19 06:00 98.2 F 18 09/21/19 05:57 75 98 09/21/19 05:52 77 97 09/21/19 05:51 75 130/74 09/21/19 05:47 77 100 09/21/19 05:46 81 93 09/21/19 05:42 78 100 09/21/19 05:37 73 97 09/21/19 05:36 82 141/76 H 92 09/21/19 05:32 63 100 09/21/19 05:30 67 92 09/21/19 05:27 80 98 09/21/19 05:22 61 144/80 H 100 09/21/19 05:20 76 92 09/21/19 05:17 73 100 09/21/19 05:12 61 99 09/21/19 05:08 67 93 09/21/19 05:07 68 140/79 98 09/21/19 05:02 79 100 09/21/19 04:57 71 18 100 09/21/19 04:52 75 98 09/21/19 04:50 64 121/66 09/21/19 04:47 76 100 09/21/19 04:42 61 96 09/21/19 04:37 68 96 09/21/19 04:35 71 126/70 09/21/19 04:32 64 99 09/21/19 04:27 73 100 09/21/19 04:22 64 99 09/21/19 04:21 65 124/72 09/21/19 04:17 63 97 09/21/19 04:12 66 98 09/21/19 04:07 61 100 09/21/19 04:06 60 126/72 09/21/19 04:02 64 96 09/21/19 04:00 98.4 F 18 09/21/19 03:57 60 97 09/21/19 03:52 60 97 09/21/19 03:51 65 121/73 09/21/19 03:47 68 97 09/21/19 03:42 67 97 09/21/19 03:37 70 96 09/21/19 03:36 67 120/69 09/21/19 03:32 70 97 09/21/19 03:27 67 96 09/21/19 03:22 63 98 09/21/19 03:20 77 117/58 L 09/21/19 03:17 74 96 09/21/19 03:12 70 97 09/21/19 03:07 67 97 09/21/19 03:06 62 122/66 07/04/20 03:02 76 96 09/21/19 02:57 73 96 09/21/19 02:52 68 96 09/21/19 02:50 63 116/64 09/21/19 02:47 64 96 09/21/19 02:42 74 97 09/21/19 02:37 63 97 09/21/19 02:36 62 122/65 09/21/19 02:32 68 97 09/21/19 02:27 66 97 09/21/19 02:22 70 98 09/21/19 02:21 67 119/67 09/21/19 02:17 71 97 09/21/19 02:12 74 97 09/21/19 02:07 78 97 09/21/19 02:06 64 138/71 09/21/19 02:05 98.2 F 09/21/19 02:02 68 94 09/21/19 02:01 64 94 09/21/19 01:57 61 95 09/21/19 01:56 60 94 09/21/19 01:52 71 92 09/21/19 01:50 66 115/57 L 94 09/21/19 01:47 64 94 09/21/19 01:42 66 94 09/21/19 01:37 63 94 09/21/19 01:36 63 116/59 L 09/21/19 01:32 64 93 09/21/19 01:31 66 94 09/21/19 01:27 59 L 95 09/21/19 01:25 63 94 09/21/19 01:22 67 95 09/21/19 01:21 61 120/62 09/21/19 01:19 60 94 09/21/19 01:17 66 95 09/21/19 01:13 61 94 09/21/19 01:12 68 96 09/21/19 01:07 67 119/65 97 09/21/19 01:02 66 96 09/21/19 00:57 71 98 09/21/19 00:52 67 97 09/21/19 00:51 62 118/66 09/21/19 00:47 76 99 09/21/19 00:42 69 99 09/21/19 00:37 77 99 09/21/19 00:36 78 121/72 09/21/19 00:32 66 96 09/21/19 00:27 61 97 09/21/19 00:22 61 97 09/21/19 00:20 65 109/61 09/21/19 00:17 64 97 09/21/19 00:12 57 L 98 09/21/19 00:07 60 117/63 98 09/21/19 00:02 64 99 09/21/19 00:00 18 09/20/19 23:57 63 97 09/20/19 23:52 59 L 97 09/20/19 23:51 58 L 110/58 L 09/20/19 23:47 61 97 09/20/19 23:42 63 97 09/20/19 23:37 57 L 97 09/20/19 23:35 64 112/64 09/20/19 23:32 70 100 09/20/19 23:30 18 09/20/19 23:27 62 96 09/20/19 23:22 61 97 09/20/19 23:20 59 L 117/69 09/20/19 23:17 62 98 09/20/19 23:13 67 92 09/20/19 23:12 69 98 09/20/19 23:07 85 97 09/20/19 23:05 73 121/72 09/20/19 23:02 76 97 09/20/19 23:01 97.9 F 09/20/19 23:00 18 09/20/19 22:57 72 97 09/20/19 22:52 73 98 09/20/19 22:51 77 120/73 09/20/19 22:47 72 99 09/20/19 22:45 18 09/20/19 22:42 68 98 09/20/19 22:37 82 98 09/20/19 22:36 80 90 09/20/19 22:34 79 119/71 09/20/19 22:32 71 122/70 99 09/20/19 22:31 75 122/70 09/20/19 22:30 18 09/20/19 22:29 66 119/77 09/20/19 22:27 72 100 09/20/19 22:26 77 131/84 09/20/19 22:25 70 18 128/79 09/20/19 22:24 67 92 09/20/19 22:23 70 18 121/81 09/20/19 22:22 72 100 07/03/20 22:17 69 100 09/20/19 22:15 77 146/80 H 09/20/19 22:13 98.2 F 18 09/20/19 22:12 67 100 Coding Level of Care Code None
[2019-09-21] MEDS ORDERED: fentaNYL citrate 100 MCG/2 ML VIAL ONE ×2 (10:45)
[2019-09-21] MEDS ORDERED: MoRPHine SULFATE PF 1 MG/ML 10 ML AMP/VIAL ONE (11:02)
[2019-09-21] MEDS ORDERED: MIDAZOLAM HCL 1 MG/ML 2ML VIAL ONE (11:03)
[2019-09-21] MEDS ORDERED: SUCCINYLCHOLINE CHLORIDE 20 MG/ML 10 ML VIAL IV ONE (11:08)
[2019-09-21] MEDS ORDERED: PROPOFOL IV EMULSION 10 MG/ML 20 ML VIAL IV ONE (11:08)
[2019-09-21] MEDS ORDERED: LACTATED RINGER'S 500 ML IV PRN (11:17)
[2019-09-21] MEDS ORDERED: MoRPHine SULFATE PF 1 MG/ML 10 ML AMP/VIAL INT SPINAL ONE (11:17)
[2019-09-21] MEDS ORDERED: NALOXONE HCL 0.08 MG in SYRINGE 1.8 ML IV PRN (11:17)
[2019-09-21] MEDS ORDERED: KETOROLAC 30 MG/ML VIAL IV PRN (11:17)
[2019-09-21] MEDS ORDERED: MEPERIDINE HCL 25 MG/ML CARP/VIAL IV PRN (11:17)
[2019-09-21] MEDS ORDERED: SODIUM CHLORIDE 0.9% 1000ML 1,000 ML IV SCH (11:30)
[2019-09-21] MEDS ORDERED: NO NARCOTICS OR SEDATIVES SCH (11:30)
[2019-09-21] MEDS ORDERED: DC INTRASPINAL MORPHINE SCH (11:30)
--- NOTE | 2019-09-21 11:35 | Operative Report ---
[facility] Post Operative Report Pre & Post Diagnosis Operation Date: 09/21/19 10:05 Pre-Op Diagnosis: Section for Failure to Progress Post-Op Diagnosis: same as preop I identified the patient and participated in the time-out.: Yes Procedure Operation Date: 09/21/19 10:05 Actual Procedures p Low transverse Section in LD; Live Female [id number](Bilateral) - Edward Santiago MD, FACOG Surgeon Edward Santiago MD, FACOG Thread Twister RN Estimated Blood Loss 600 Findings Consistent with Post-Op Diagnosis Specimens Cord blood and cord gases Description of Procedure The patient was given preoperative antibiotics her epidural had been increased by anesthesia however it was still not cut resulting in a full block I did inject 0.25% Marcaine into the incisional area and offered the patient to proceed with general or try to work with regional and local the patient voiced that she would like to try it with regional and local made incision with a scalpel and then dissecting down through the subtenons fat to the fascia on incision of the fascia patient felt more pain I injected this again with 0.25% Marcaine on attempting to cut the fascia more the patient felt more discomfort at this stage I confired with anesthesia and we agreed for a general anesthetic as the patient was not tolerating this The patient was given general anesthetic with endotracheal intubation once this was complete I was able to then perform the rest of the surgery Fascia was cut laterally with King's to allow exposure rectus muscles were then released superiorly and inferiorly from the fascia rectus muscle split peritoneal cavity entered in a superior location. We then enlarged the peritoneal cavity opening placed the bladder retractor use Metzenbaums dissect away the bladder flap scalpel used to make a low transverse incision of the uterus. Entry was done bluntly with the charging machine operator's finger hysterotomy extended with the charging machine operator's finger in the usual fashion baby was in vertex position was released from the pelvis by flexion of the head and then pressure by the guest services assistant on the abdomen there is a thin meconium mouth and the nares suctioned with bulb baby was delivered without any excessive force easy delivery no nuchal cord vigorous at delivery pediatrics in attendance Cord gases obtained cord blood obtained after cord been clamped and cut placenta removed we ensured all placenta was removed with a moist lap and ring forceps. Uterus was exteriorized IV Pitocin was started by anesthesia uterine tone im proved there was no extensions were able to close the uterus with 0 Monocryl in first a running oh lock stitch and a second oh nonlocked stitch at this stage hemostasis was excellent urine was clear after generous irrigation and suction of the cul-de-sac and bladder flap regions uterus placed back in the peritoneal cavity on inspection hemostasis was excellent. We inspected the rectus muscles these were dry subfascially fascia was then closed with 0 Vicryl subcutaneous fat was irrigated and closed with 3-0 Vicryl 4-0 subcuticular Monocryl closure and then a zoë dressing was applied sponge an d instrument counts correct I attest to the content of the Intraoperative Record and any orders documented therein. Any exceptions are noted below.
[2019-09-21] MEDS ORDERED: OXYTOCIN 10 UNITS/ML VIAL ONE (11:38)
[2019-09-21 12:07] LABS: Base Excess Cord Arterial Bld -4.7 mEq/L (-9-1.8); CO2 Cord Arterial Blood 48 mmHg (39.1-73.5); HCO3 Cord Arterial Blood 22 mmol/L (19.7-28.5); PO2 Cord Arterial Blood 36 mmHg (4.1-31.7); pH Cord Arterial Blood 7.29 (7.1-7.38)
[2019-09-21 12:11] LABS: Base Excess Cord Venous Blood -3.5 mEq/L (-7.7-1.9); Cord Venous Blood HCO3 25 mmol/L (18.4-26.8); Cord Venous Blood PCO2 57 mmHg (30.4-57.2); Cord Venous Blood PO2 22 mmHg (14.1-43.3); Cord Venous Blood pH 7.26 (7.20-7.44)
[2019-09-21 12:12] LABS: O2 Saturation Cord Venous Bld < 60.0 % (<68)
[2019-09-21] MEDS ORDERED: MAGNESIUM HYDROXIDE SUSP 30 ML UDC PO PRN (12:37)
[2019-09-21] MEDS ORDERED: BENZOCAINE 20% AER SPR 82.5 GM CAN EXT PRN (12:37)
[2019-09-21] MEDS ORDERED: SUPERCREAM 0.870% 15 GM JAR EXT PRN (12:37)
[2019-09-21] MEDS ORDERED: DIPHTHERIA/TETANUS/PERTUSSIS 0.5 ML SYR/VIAL IM ONE (12:37)
[2019-09-21] MEDS ORDERED: HYDROCORTISONE ACETATE 25 MG SUPP PR PRN (12:37)
[2019-09-21] MEDS ORDERED: LACTATED RINGER'S 1,000 ML IV SCH (12:37)
[2019-09-21] MEDS ORDERED: ZOLPIDEM TARTRATE 5 MG TAB PO PRN (12:37)
[2019-09-21] MEDS ORDERED: SENNA 8.6 MG TAB PO PRN (12:37)
[2019-09-21] MEDS ORDERED: PROMETHAZINE HCL 25 MG in SODIUM CHLORIDE 0.9% 50 ML IV PRN (12:37)
[2019-09-21] MEDS ORDERED: CETIRIZINE HCL 10 MG TABLET PO PRN (12:54)
--- NOTE | 2019-09-21 13:15 | Anesthesiology Progress Note ---
Date of Service September 21, 2019 Anesthesia Post Procedure Vital Signs Vital Signs: Temp Pulse Resp BP Pulse Ox 09/21/19 13:10 96 H 97 09/21/19 13:07 94 H 146/68 H 09/21/19 13:05 92 H 98 09/21/19 13:00 93 H 98 09/21/19 12:57 96 H 136/63 09/21/19 12:55 94 H 97 09/21/19 12:50 95 H 100 09/21/19 12:47 101 H 144/64 H 09/21/19 12:45 96 H 95 09/21/19 12:42 100 H 90 09/21/19 12:40 102 H 99 09/21/19 12:37 93 H 132/72 09/21/19 12:36 96 H 91 09/21/19 12:35 95 H 95 09/21/19 12:31 102 H 93 09/21/19 12:30 99 H 18 100 09/21/19 12:27 99 H 150/73 H 09/21/19 12:25 109 H 97 09/21/19 12:20 104 H 18 96 09/21/19 12:17 95 H 153/81 H 94 09/21/19 12:15 98 H 100 09/21/19 12:12 91 H 91 09/21/19 12:10 87 18 99 09/21/19 12:07 86 139/79 09/21/19 12:05 85 99 09/21/19 12:00 95 H 100 09/21/19 11:57 98.8 F 86 16 140/81 09/21/19 11:55 90 100 09/21/19 10:17 89 160/82 H 94 09/21/19 10:14 81 153/77 H 09/21/19 10:12 79 98 09/21/19 10:11 80 161/78 H 09/21/19 10:10 93 H 93 09/21/19 10:07 87 99 09/21/19 10:04 79 93 09/21/19 10:02 80 163/71 H 98 09/21/19 10:00 18 09/21/19 09:57 92 H 100 09/21/19 09:52 82 99 09/21/19 09:48 92 H 92 09/21/19 09:47 81 98 09/21/19 09:46 86 137/73 09/21/19 09:43 95 H 92 09/21/19 09:42 92 H 97 09/21/19 09:37 91 H 98 09/21/19 09:32 86 99 09/21/19 09:31 80 129/74 09/21/19 09:28 81 140/86 09/21/19 09:27 89 98 09/21/19 09:22 80 100 09/21/19 09:17 84 99 09/21/19 09:15 75 131/72 09/21/19 09:12 87 98 09/21/19 09:09 86 94 09/21/19 09:07 80 98 09/21/19 09:02 80 98 09/21/19 09:00 83 18 132/71 09/21/19 08:57 83 100 09/21/19 08:52 82 99 09/21/19 08:47 88 100 09/21/19 08:46 85 124/63 09/21/19 08:42 88 99 09/21/19 08:37 83 99 09/21/19 08:32 83 100 09/21/19 08:30 18 09/21/19 08:29 83 132/75 09/21/19 08:27 89 100 09/21/19 08:24 89 144/79 H 09/21/19 08:22 98.4 F 87 96 09/21/19 08:19 86 131/70 09/21/19 08:17 92 H 98 09/21/19 08:15 82 145/74 H 09/21/19 08:12 80 100 09/21/19 08:11 90 93 09/21/19 08:09 83 119/60 09/21/19 08:07 80 100 09/21/19 08:06 82 133/69 09/21/19 08:03 91 H 93 09/21/19 08:02 85 96 09/21/19 07:58 87 127/78 09/21/19 07:57 97 H 98 09/21/19 07:52 99 H 98 09/21/19 07:47 84 18 91 09/21/19 07:42 79 100 09/21/19 07:37 73 100 09/21/19 07:36 68 125/69 09/21/19 07:32 84 97 09/21/19 07:30 18 09/21/19 07:27 77 98 09/21/19 07:22 73 100 09/21/19 07:21 72 137/66 09/21/19 07:17 77 100 09/21/19 07:15 96 H 92 09/21/19 07:12 88 100 09/21/19 07:11 98.1 F 18 09/21/19 07:07 88 100 09/21/19 07:06 75 134/69 09/21/19 07:02 88 100 09/21/19 07:00 18 09/21/19 06:57 77 100 09/21/19 06:52 108 H 150/94 H 99 09/21/19 06:48 85 91 09/21/19 06:47 76 98 09/21/19 06:42 85 99 09/21/19 06:37 73 100 09/21/19 06:35 64 131/72 09/21/19 06:32 80 97 09/21/19 06:27 78 96 09/21/19 06:23 80 91 09/21/19 06:22 74 96 09/21/19 06:20 74 121/67 09/21/19 06:17 71 98 09/21/19 06:12 66 98 09/21/19 06:09 70 89 L 09/21/19 06:07 67 100 09/21/19 06:05 81 129/78 09/21/19 06:02 63 98 09/21/19 06:00 98.2 F 18 09/21/19 05:57 75 98 09/21/19 05:52 77 97 09/21/19 05:51 75 130/74 09/21/19 05:47 77 100 09/21/19 05:46 81 93 09/21/19 05:42 78 100 09/21/19 05:37 73 97 09/21/19 05:36 82 141/76 H 92 09/21/19 05:32 63 100 09/21/19 05:30 67 92 09/21/19 05:27 80 98 09/21/19 05:22 61 144/80 H 100 09/21/19 05:20 76 92 09/21/19 05:17 73 100 09/21/19 05:12 61 99 09/21/19 05:08 67 93 09/21/19 05:07 68 140/79 98 09/21/19 05:02 79 100 09/21/19 04:57 71 18 100 09/21/19 04:52 75 98 09/21/19 04:50 64 121/66 09/21/19 04:47 76 100 09/21/19 04:42 61 96 09/21/19 04:37 68 96 09/21/19 04:35 71 126/70 09/21/19 04:32 64 99 09/21/19 04:27 73 100 09/21/19 04:22 64 99 09/21/19 04:21 65 124/72 09/21/19 04:17 63 97 09/21/19 04:12 66 98 09/21/19 04:07 61 100 09/21/19 04:06 60 126/72 09/21/19 04:02 64 96 09/21/19 04:00 98.4 F 18 09/21/19 03:57 60 97 09/21/19 03:52 60 97 09/21/19 03:51 65 121/73 09/21/19 03:47 68 97 09/21/19 03:42 67 97 09/21/19 03:37 70 96 09/21/19 03:36 67 120/69 09/21/19 03:32 70 97 09/21/19 03:27 67 96 09/21/19 03:22 63 98 09/21/19 03:20 77 117/58 L 09/21/19 03:17 74 96 09/21/19 03:12 70 97 09/21/19 03:07 67 97 09/21/19 03:06 62 122/66 09/21/19 03:02 76 96 09/21/19 02:57 73 96 09/21/19 02:52 68 96 09/21/19 02:50 63 116/64 09/21/19 02:47 64 96 09/21/19 02:42 74 97 09/21/19 02:37 63 97 09/21/19 02:36 62 122/65 09/21/19 02:32 68 97 09/21/19 02:27 66 97 09/21/19 02:22 70 98 09/21/19 02:21 67 119/67 09/21/19 02:17 71 97 09/21/19 02:12 74 97 09/21/19 02:07 78 97 09/21/19 02:06 64 138/71 09/21/19 02:05 98.2 F 09/21/19 02:02 68 94 09/21/19 02:01 64 94 09/21/19 01:57 61 95 09/21/19 01:56 60 94 09/21/19 01:52 71 92 09/21/19 01:50 66 115/57 L 94 09/21/19 01:47 64 94 09/21/19 01:42 66 94 09/21/19 01:37 63 94 09/21/19 01:36 63 116/59 L 09/21/19 01:32 64 93 09/21/19 01:31 66 94 09/21/19 01:27 59 L 95 09/21/19 01:25 63 94 09/21/19 01:22 67 95 09/21/19 01:21 61 120/62 09/21/19 01:19 60 94 09/21/19 01:17 66 95 09/21/19 01:13 61 94 09/21/19 01:12 68 96 09/21/19 01:07 67 119/65 97 09/21/19 01:02 66 96 09/21/19 00:57 71 98 09/21/19 00:52 67 97 09/21/19 00:51 62 118/66 09/21/19 00:47 76 99 09/21/19 00:42 69 99 09/21/19 00:37 77 99 09/21/19 00:36 78 121/72 09/21/19 00:32 66 96 09/21/19 00:27 61 97 09/21/19 00:22 61 97 09/21/19 00:20 65 109/61 09/21/19 00:17 64 97 09/21/19 00:12 57 L 98 09/21/19 00:07 60 117/63 98 09/21/19 00:02 64 99 09/21/19 00:00 18 09/20/19 23:57 63 97 09/20/19 23:52 59 L 97 09/20/19 23:51 58 L 110/58 L 09/20/19 23:47 61 97 09/20/19 23:42 63 97 09/20/19 23:37 57 L 97 09/20/19 23:35 64 112/64 09/20/19 23:32 70 100 09/20/19 23:30 18 09/20/19 23:27 62 96 09/20/19 23:22 61 97 09/20/19 23:20 59 L 117/69 09/20/19 23:17 62 98 09/20/19 23:13 67 92 09/20/19 23:12 69 98 09/20/19 23:07 85 97 09/20/19 23:05 73 121/72 09/20/19 23:02 76 97 09/20/19 23:01 97.9 F 09/20/19 23:00 18 09/20/19 22:57 72 97 09/20/19 22:52 73 98 09/20/19 22:51 77 120/73 09/20/19 22:47 72 99 09/20/19 22:45 18 09/20/19 22:42 68 98 09/20/19 22:37 82 98 09/20/19 22:36 80 90 09/20/19 22:34 79 119/71 09/20/19 22:32 71 122/70 99 09/20/19 22:31 75 122/70 09/20/19 22:30 18 09/20/19 22:29 66 119/77 09/20/19 22:27 72 100 09/20/19 22:26 77 131/84 09/20/19 22:25 70 18 128/79 09/20/19 22:24 67 92 09/20/19 22:23 70 18 121/81 09/20/19 22:22 72 100 09/20/19 22:17 69 100 09/20/19 22:15 77 146/80 H 09/20/19 22:13 98.2 F 18 09/20/19 22:12 67 100 09/20/19 21:32 61 141/87 H 09/20/19 20:31 69 128/80 09/20/19 19:31 66 125/66 09/20/19 19:14 98.4 F 18 09/20/19 19:06 68 136/82 09/20/19 17:58 73 144/83 H 09/20/19 17:57 98.2 F 22 Transfer of Care Handoff Completed per policy Notes Mental Status: alert / awake / arousable and participated in evaluation Patient Amnestic to Procedure: Yes Nausea / Vomiting: adequately controlled Pain: adequately controlled Airway Patency, RR, SpO2: stable & adequate BP & HR: stable & adequate Hydration State: stable & adequate Neuraxial Anesthesia: was administered and sensory block is resolving Anesthetic Complications: no major complications apparent and Pt Satisfied with anesthetic care
[2019-09-21] MEDS: OXYTOCIN 20 UNITS in LACTATED RINGER'S 1,000 ML IV SCH ×2 (14:50→22:52)
[2019-09-21] MEDS: SIMETHICONE 80 MG CHEW PO SCH ×2 (17:20→21:00)
[2019-09-21] MEDS: DOCUSATE SODIUM 100 MG CAP PO SCH (21:00)
[2019-09-22] MEDS ORDERED: KETOROLAC 30 MG/ML VIAL IV PRN (05:18)
[2019-09-22 06:36] LABS: Basophils # (auto) 0.01 K/uL (0-0.2); Basophils % (auto) 0.1 %; Eosinophils # (auto) 0.05 K/uL (0-0.5); Eosinophils % (auto) 0.3 %; Hematocrit (blood only) 30.1 % (37-47); Hemoglobin 9.8 g/dL (12.0-16.0); Immature Granulocytes # (auto) 0.05 K/uL (0.00-0.02); Immature Granulocytes % (auto) 0.3 %; Lymphocytes # (auto) 2.21 K/uL (1.2-3.4); Lymphocytes % (auto) 14.4 %; Mean Corpuscular Hemoglobin 28.8 pg (25-34); Mean Corpuscular Hgb Conc 32.6 g/dL (32-36); Mean Corpuscular Volume 88.5 fL (80-100); Mean Platelet Volume 12.4 fL (7.4-10.4); Monocytes # (auto) 1.15 K/uL (0.11-0.59); Monocytes % (auto) 7.5 %; Neutrophils # (auto) 11.85 K/uL (1.4-6.5); Neutrophils % (auto) 77.4 %; Platelet Count 135 K/uL (130-400); RDW Coefficient of Variation 13.5 % (11.5-14.5); RDW Standard Deviation 43.5 fL (36.4-46.3); White Blood Count 15.32 K/uL (4.8-10.8)
--- NOTE | 2019-09-22 07:40 | Obstetrical Progress Note ---
Date of Service September 22, 2019 Assessment & Plan (1) state: day #1 from a 2-day induction resulting in section for failure to progress patient is doing well at this stage we will encourage ambulation Subjective Ambulation: limited ambulation Voiding: hernández catheter in place Diet Tolerance:: regular diet Lochia:: Small Feeding Type:: breast feeding Current Pain Level(1-10): 1 She is doing well no extremity pain minimal bleeding Physical Exam Constitutional WD/WN, vitals as above Gastrointestinal (Abdomen) normal bowel sounds, soft, nontender, no hepatosplenomegaly Results & [facility] ([facility]) Vital Signs (Past 12 Hours) Vital Signs Temp Pulse Resp BP Pulse Ox 09/22/19 04:30 18 96 09/22/19 04:00 98.1 F 76 18 102/80 09/22/19 03:30 18 96 09/22/19 02:30 18 96 09/22/19 01:30 18 96 09/22/19 00:30 18 96 09/21/19 23:30 98.6 F 63 18 105/72 95 09/21/19 23:00 18 96 09/21/19 22:00 18 96 09/21/19 21:00 18 96 09/21/19 20:00 98.6 F 93 H 18 115/76 95
[2019-09-22] MEDS: DOCUSATE SODIUM 100 MG CAP PO SCH ×2 (07:56→20:08)
[2019-09-22] MEDS: PRENATAL VITAMIN 1 TAB PO SCH (07:56)
[2019-09-22] MEDS: CHOLECALCIFEROL 1,000 UNITS 25 MCG TAB PO SCH (07:56)
[2019-09-22] MEDS: FERROUS SULFATE 325 MG TAB PO SCH (07:56)
[2019-09-22] MEDS: SACCHAROMYCES BOULARDII 250 MG CAP PO SCH (07:59)
[2019-09-22] MEDS: FAMOTIDINE 20 MG TAB PO SCH (08:05)
[2019-09-22] MEDS: SIMETHICONE 80 MG CHEW PO SCH ×3 (08:05→20:08)
[2019-09-22] MEDS ORDERED: NON-FORMULARY MEDICATION (Prenat.Vits,Cal,Min-Iron-Folic 1 TAB) PO SCH (09:00)
[2019-09-22] MEDS ORDERED: NON-FORMULARY MEDICATION (Zinc 50 MG) PO SCH (09:00)
[2019-09-22] MEDS ORDERED: SELENIUM 100 MCG PO SCH (09:00)
[2019-09-22] MEDS: IBUPROFEN 600 MG TAB PO PRN ×2 (13:41→20:08)
[2019-09-22] MEDS: OXYCODONE/ACETAMINOPHEN 5mg/325mg TAB PO PRN ×2 (13:41→20:08)
[2019-09-22] MEDS ORDERED: bisacodyL 5 MG TABEC PO SCH (20:00)
[2019-09-23] MEDS: IBUPROFEN 600 MG TAB PO PRN ×2 (01:04→05:00)
[2019-09-23] MEDS: OXYCODONE/ACETAMINOPHEN 5mg/325mg TAB PO PRN ×2 (01:04→05:01)
[2019-09-23 06:35] LABS: Hematocrit (blood only) 28.9 % (37-47); Hemoglobin 9.4 g/dL (12.0-16.0)
--- NOTE | 2019-09-23 06:55 | Obstetrical Progress Note ---
Date of Service September 23, 2019 Assessment & Plan (1) state: day #2 from a 2-day induction resulting in section for failure to progress patient is doing well at this stage we will encourage ambulation Postoperative from section patient meets discharge criteria as she is ambulating well tolerating an oral diet has minimal bleeding and no extremity pain. Discharge instructions were reviewed and prescriptions were sent to her pharmacy of choice patient advised to call with any concerns and follow-up in the office discussed Subjective Ambulation: ambulating normally Voiding: no voiding problems Passing Gas:: Yes Diet Tolerance:: regular diet Lochia:: Small Feeding Type:: breast feeding Current Pain Level(1-10): 1 Physical Exam Constitutional WD/WN, vitals as above Gastrointestinal (Abdomen) normal bowel sounds, soft, nontender, no hepatosplenomegaly Results & Data ([facility]) Vital Signs (Past 12 Hours) Vital Signs Temp Pulse Resp BP Pulse Ox 09/22/19 23:30 97.7 F 73 16 112/76 95
[2019-09-23 08:41] VITALS: BP 109/76; TEMP 98.2; O2SAT 99
[2019-09-23] MEDS: SIMETHICONE 80 MG CHEW PO SCH (09:51)
[2019-09-23] MEDS: PRENATAL VITAMIN 1 TAB PO SCH (09:51)
[2019-09-23] MEDS: DOCUSATE SODIUM 100 MG CAP PO SCH (09:51)
[2019-09-23] MEDS: FERROUS SULFATE 325 MG TAB PO SCH (09:52)
[2019-09-23] MEDS: FAMOTIDINE 20 MG TAB PO SCH (09:52)
[2019-09-23] MEDS: CHOLECALCIFEROL 1,000 UNITS 25 MCG TAB PO SCH (09:54)
[2019-09-23] MEDS: SACCHAROMYCES BOULARDII 250 MG CAP PO SCH (09:56)
[2019-09-23 11:09] VITALS: PULSE 73
[2019-09-23] MEDS ORDERED: bisacodyL 10 MG SUPP PR PRN (11:25)
--- NOTE | 2019-09-25 08:13 | Discharge Summary ---
Date of Service September 25, 2019 Admission HPI Per Admitting Provider Patient is a 29yowf with iup at 40 5/7 weeks who presents for induction for postdates. She notes some irregular contractions. No lof/vb. +fm. was complicated by borderline bps in the last week. No s/s pet. WAs to be induced on but was full. Had hernández bulb placed on Mon pm. Fell out early am but did not do much for cervical ripening. labs--A+/ab-/rirprnr/hepb-/hiv-/gc/ct-/gbs neg/failed 28 week gtt with nl 2 hr gtt/declined genetics/cf/sma Admission Exam (Per Admitting) Constitutional WD/WN, vitals as above Respiratory normal respiratory effort, lungs clear to auscultation Cardiovascular RRR, no murmur, no edema Gastrointestinal (Abdomen) normal bowel sounds, soft, nontender, no hepatosplenomegaly Discharge Data Consultations 09/20/19 08:58 Consult Anesthesiology Stat Procedures Performed Operation Date: 09/21/19 10:05 Actual Procedures p Section in LD; Live Female Infant 1056(Bilateral) - Edward Santiago MD, FACOG Hospital Course (1) state: day #2 from a 2-day induction resulting in section for failure to progress patient is doing well at this stage we will encourage ambulation Postoperative from section patient meets discharge criteria as she is ambulating well tolerating an oral diet has minimal bleeding and no extremity pain. Discharge instructions were reviewed and prescriptions were sent to her pharmacy of choice patient advised to call with any concerns and follow-up in the office discussed Coding Level of Care Code None Diagnoses state Z39.2
== END 2019-09-23 12:35 | disposition home or self-care (01) | DRG 788 ==
LOC: 4S1 08:04 → 4S2 09-21 15:00